=== PATIENT | female | born 1990 | race Caucasian/White ===

== ENCOUNTER 2016-08-06 01:16 | Emergency (ER) | payer OTHER ==
[~2016-08-06] VITALS: Ht 160 cm; Wt 111.2 kg
[~2016-08-06 01:16] MED LIST: FLEXERIL10 MG PO; MOTRIN800 MG PO; NO HOME MEDS; PREDNISONE20 MG PO; WELLBUTRIN SR100 MG PO
[2016-08-06] MEDS ORDERED: AZITHROMYCIN250 MG PO (02:20)
[2016-08-06] MEDS ORDERED: VENTOLIN HFA18 GM IH (02:20)
[2016-08-06] MEDS ORDERED: HYCODAN SYRUP480 ML PO (02:20)
[2016-08-06 03:31] VITALS: BP 114/66
== END 2016-08-06 03:35 | disposition home or self-care (01) ==
LOC: EME 01:16
DX: J20.9 Acute bronchitis, unspecified (principal); J06.9 Acute upper respiratory infection, unspecified
CPT/HCPCS: 71020; 94640; 99281; 99284